=== PATIENT | male | born 1995 | race African-American/Black ===

== ENCOUNTER 2021-05-19 19:46 | Emergency (ER) ==
[~2021-05-19] VITALS: Ht 193 cm; Wt 71.4 kg
== END 2021-05-19 21:58 | disposition left against medical advice (07) ==
LOC: M ED 19:46
DX: Z53.29 Procedure and treatment not carried out because of patient's decision for other reasons (principal)

== ENCOUNTER → 2023-01-09 | Outpatient (CLI) | payer OTHER | LOC: M RAD 13:17 | PROVIDERS: ATTEND Family Medicine | DX: M25.532 Pain in left wrist (principal); S66.912A Strain of unspecified muscle, fascia and tendon at wrist and hand level, left hand, initial encounter; X58.XXXA Exposure to other specified factors, initial encounter; Y92.9 Unspecified place or not applicable; Y93.9 Activity, unspecified; Y99.9 Unspecified external cause status ==

== ENCOUNTER 2023-08-14 06:16 | Day surgery (SDC) | payer OTHER ==
[~2023-08-14] VITALS: Ht 162.6 cm; Wt 86.1 kg
[~2023-08-14 06:16] MED LIST: SUMA25TA3 PO; ceFAZolin SOD 2 GM in IV 1 EA IV ONE
[2023-08-14] MEDS ORDERED: EPINEPHrine INJ 1 MG/ML 1ML AMP PN ONE (06:30)
[2023-08-14] MEDS ORDERED: ROPIvacaine 0.5% 30ML VIAL PN ONE (06:30)
[2023-08-14] MEDS ORDERED: dexAMETHasone 10MG/1ML VIAL PRES.FREE PN ONE (06:30)
[2023-08-14] MEDS ORDERED: LIDOCAINE 1% SDV 5ML VIAL PN ONE (06:30)
[2023-08-14] MEDS ORDERED: LR 1,000 ML IV SCH ×2 (06:35→10:40)
[2023-08-14] MEDS ORDERED: fentaNYL 100 MCG/2 ML INJECTION As Ordered ONE (07:20)
[2023-08-14] MEDS ORDERED: ONDANSETRON 4MG 2ML VIAL As Ordered ONE (07:21)
[2023-08-14] MEDS ORDERED: ROCURONIUM BROMIDE 50MG/5ML VIAL As Ordered ONE (07:21)
[2023-08-14] MEDS ORDERED: propofoL 200 MG/20 ML VIAL As Ordered ONE (07:21)
[2023-08-14] MEDS ORDERED: LIDOCAINE 2% 100MG/5ML SDV (FOR ANES.) As Ordered ONE (07:21)
[2023-08-14] MEDS: MIDAZOLAM INJ 2MG/2ML VIAL IV PRN (07:25)
[2023-08-14] MEDS: fentaNYL 100 MCG/2 ML INJECTION IV PRN (07:25)
[2023-08-14] MEDS ORDERED: MIDAZOLAM INJ 2MG/2ML VIAL As Ordered ONE (07:47)
[2023-08-14] MEDS ORDERED: ACETAMINOPHEN 1000MG 100ML IV BAG As Ordered ONE (08:09)
[2023-08-14] MEDS ORDERED: KETOROLAC 60MG 2ML VIAL As Ordered ONE (08:21)
[2023-08-14] MEDS ORDERED: BACITRACIN OINTMENT 30GM TUBE As Ordered ONE (10:12)
[2023-08-14] MEDS ORDERED: ePHEDrine SULFATE 25 MG/5 ML(5MG/ML) SYRINGE As Ordered ONE (10:14)
[2023-08-14] MEDS ORDERED: PERCOCET PO (10:38)
[2023-08-14] MEDS ORDERED: ONDANSETRON 4MG 2ML VIAL IV PRN (10:40)
[2023-08-14] MEDS ORDERED: fentaNYL 100 MCG/2 ML INJECTION IV PRN (10:40)
[2023-08-14 11:40] VITALS: BP 130/63; TEMP 97.4; O2SAT 97
== END 2023-08-14 12:05 | disposition home or self-care (01) ==
LOC: M SDC 06:16
PROVIDERS: ATTEND Orthopaedic Surgery Hand Surgery
DX: S63.592A Other specified sprain of left wrist, initial encounter (principal); M24.832 Other specific joint derangements of left wrist, not elsewhere classified; F17.200 Nicotine dependence, unspecified, uncomplicated; G43.909 Migraine, unspecified, not intractable, without status migrainosus; F41.9 Anxiety disorder, unspecified; Z79.899 Other long term (current) drug therapy
CPT/HCPCS: 29846; 64415; J0131; J0690; J1100; J1885; J2250; J2405; J3010

== ENCOUNTER → 2023-08-26 | Outpatient (CLI) | payer OTHER ==
[~2023-08-26] MED LIST changes: +PERCOCET PO; -ceFAZolin SOD 2 GM in IV 1 EA IV ONE
== END ==
LOC: M SOG 07:57
PROVIDERS: ATTEND Physician Assistant
DX: M25.532 Pain in left wrist (principal); Z53.9 Procedure and treatment not carried out, unspecified reason

== ENCOUNTER → 2023-08-27 | Outpatient (CLI) | payer OTHER | LOC: M SOG 07:54 | PROVIDERS: ATTEND Physician Assistant | DX: M25.532 Pain in left wrist (principal); R60.0 Localized edema ==

== ENCOUNTER → 2023-09-23 | Outpatient (CLI) | payer OTHER | LOC: M SOG 11:40 | PROVIDERS: ATTEND Physician Assistant | DX: M79.639 Pain in unspecified forearm (principal); Z53.9 Procedure and treatment not carried out, unspecified reason ==

== ENCOUNTER → 2024-09-03 | Outpatient (CLI) | payer OTHER | LOC: M PLARAD 07:46 | PROVIDERS: ATTEND Physician Assistant | DX: M25.531 Pain in right wrist (principal); M19.031 Primary osteoarthritis, right wrist ==